=== PATIENT | male | born 1955 | race Caucasian/White ===

== ENCOUNTER 2025-04-24 17:27 | Emergency (ER) | payer MEDICARE, OTHER, SELFPAY ==
[2025-04-24 17:45] VITALS: BP 134/89
[2025-04-24 18:29] LABS: Hematocrit 44.1 % (39.0-52.0); Hemoglobin 14.2 g/dL (13.0-18.0); Mean Corp Hgb Conc. 32.2 g/dL (33.0-37.0); Mean Corpuscular Volume 80.8 fL (80.0-94.0); Nucleated Red Blood Cells % 0 % (-); Platelet Count 366 10^3/uL (130-400); Red Cell Dist. Width 16.3 % (11.5-14.5)
[2025-04-24 18:50] LABS: ALT (SGPT) 15 U/L (0-50); AST (SGOT) 21 U/L (17-59); Albumin 3.8 g/dl (3.5-5.0); Alkaline Phosphatase 114 U/L (38-126); Blood Urea Nitrogen 23 mg/dl (9-20); Calcium 9.5 mg/dl (8.4-10.2); Carbon Dioxide 25 mmol/L (22-30); Chloride 103 mmol/L (98-107); Glucose 167 mg/dl (70-99); Potassium 4.6 mmol/L (3.5-5.1); Sodium 136 mmol/L (135-145); Total Protein 7.6 g/dl (6.3-8.2); eGFR 53.74
[2025-04-24 21:47] LABS: Urine Character Clear (Clear)
--- NOTE | 2025-04-24 21:53 | ED.GENMED ---
History of Present Illness
General
Chief Complaint: Fall
Source: patient and family
Time Seen by Provider: 04/24/25 20:47
History of Present Illness
History of Present Illness:
Note:
CHIEF COMPLAINT(S)
Injury from a fall and feelings of weakness.
HISTORY OF PRESENT ILLNESS
The patient is a 70-year-old male visiting from [place] for the . He reports that he had a fall, during which he sustained a minor injury to his knee. The patient does not feel like anything is broken. Following the fall, the
patient has felt weaker than usual but notes some improvement, as he can currently stand up. He has not experienced any fevers and reports no urinary issues, noting that his urine is yellow without any burning sensation. The patient also has a
persistent cough, which he describes as a minor issue and states that several peers in his age group have similar symptoms.
The patient reports skipping meals in the past few days intentionally, as part of his weight loss efforts. He manages diabetes with insulin, adjusting his insulin based on blood glucose readings from a sensor. He takes both fast-acting and
slow-acting insulin, with slow-acting being reported as more effective for him. He denies any episodes of hypoglycemia during his weak spells. The patient notes difficulty with physical activities, such as going up stairs at a hotel, and reports a
general lack of exercise while residing in [place].
The patients family member expressed concern over his deconditioning, inadequate self-care, and mobility issues such as difficulties getting up a single step at their front door. These factors are believed to contribute to his current state.
PAST MEDICAL AND SURGICAL HISTORY
The patient has a past medical history of a stroke and a prostate condition managed with lemon juice.
EXTERNAL RECORDS REVIEWED
The physician expressed an intention to review the patients laboratory results.
CHRONIC MEDICAL CONDITIONS SIGNIFICANTLY AFFECTING CARE
1. Diabetes mellitus managed with insulin.
2. Obesity suggested by the patients own reflection and the clinical examination.
SOCIAL DETERMINANTS AFFECTING HEALTH
The patient has not been maintaining an active lifestyle, particularly while residing in [place]. There are concerns from family about his deconditioning and self-care.
REVIEW OF SYSTEMS
- Constitutional: Weakness, no recent fevers.
- Respiratory: Persistent cough without acute distress.
- Genitourinary: No dysuria, yellow urine.
- Endocrine: Diabetes managed with insulin.
- Neurological: Weakness particularly noted after a fall, no acute deficits noted.
PHYSICAL EXAM
General: Alert, no acute distress, obese.
Skin: Warm, dry.
Head: Normocephalic, atraumatic.
Neck: Supple, trachea midline.
Eye, Ears, Nose, Mouth, and Throat: Oral mucosa moist.
Cardiovascular: Regular heart rate, no murmurs on auscultation.
Respiratory: Lungs clear to auscultation, respirations are non-labored.
Gastrointestinal: Abdomen nondistended.
Back: Normal range of motion, normal alignment.
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 No focal motor deficits. Small abrasion noted to the right knee
Neurological: Alert and oriented, no pronator drift, normal [id number] coordination.
Psychiatric: Cooperative, appropriate mood and affect.
PROBLEM LIST
Acute:
1. Fall with subsequent weakness.
Chronic:
1. Diabetes mellitus.
2. Obesity.
PLAN
1. Review laboratory results to assess for any underlying issues such as renal function and blood glucose management.
2. Perform a urine study to check for infection, hematuria, or proteinuria.
3. Monitor and adjust diabetes management based on blood glucose readings.
4. Consider addressing deconditioning with possible recommendations for engaging in more physical activity.
5. Discuss ongoing concerns with the patients family about his mobility and health maintenance.
DIFFERENTIAL DIAGNOSIS
The Differential Diagnosis includes, in no particular order and is not limited to:
1. Deconditioning
2. Peripheral neuropathy related to diabetes
3. Orthostatic hypotension
4. Stroke or transient ischemic attack
5. Medication side effect
6. Hypoglycemia/hyperglycemia episodes
7. Prostate issues affecting urinary function
8. Infection (e.g., lower respiratory tract)
9. Congestive heart failure
10. Vestibular disturbances or inner ear issues.
Disposition:
SUMMARY OF ENCOUNTER
The patient, a 70-year-old male visiting from [place] for the holidays, presented to the emergency department following a fall. He sustained a minor abrasion to the right knee. The family expressed concern about his weakness, attributing it to
deconditioning, as he has been overweight and obese. The patient appeared well, with a history of similar weakness during a previous holiday visit. He is afebrile and was able to get up with a cane without difficulty. Lab results were reviewed,
showing mild leukocytosis with a white blood cell count of 13.9. Other values, including hemoglobin, platelets, and electrolytes like sodium, potassium, chloride, and bicarbonate, were normal. His creatinine was slightly elevated at 1.4 mg/dL;
baseline levels were unavailable, and blood glucose was noted at 167 mg/dL. Liver function tests were grossly unremarkable. There was no clinical concern for stroke, and a urine analysis was performed, which was negative. Based on these findings, no
acute issues warrant hospital admission, but the patient was advised to return if symptoms worsen, such as the onset of fevers or more profound weakness.
PLAN
The plan includes discharging the patient with instructions to monitor for any escalation of symptoms such as the onset of fevers or increased weakness. If these occur, the patient should return for further assessment.
INDEPENDENT REVIEW OF LABS AND INTERPRETATION OF TESTS
My independent review of the CBC shows mild leukocytosis with a white blood cell count of 13.9, normal hemoglobin, and normal platelets. My independent review of BMP indicates slightly elevated creatinine at 1.4 mg/dL, with normal sodium, potassium,
chloride, and bicarbonate levels. Blood glucose was noted at 167 mg/dL. Liver function tests were unremarkable.
FOLLOW-UP INSTRUCTIONS
The patient should follow up with a primary care physician for ongoing management and monitoring of his condition. He should return to the emergency department if symptoms worsen.
MEDICATION RECONCILIATION
None explicitly prescribed or administered during the emergency department visit.
MEDICAL DECISION MAKING
- Number and Complexity of Problems Addressed: Chronic conditions affecting care include diabetes mellitus managed with insulin and obesity. Differential diagnosis considerations include deconditioning, peripheral neuropathy related to diabetes,
orthostatic hypotension, stroke or transient ischemic attack, medication side effect, hypoglycemia/hyperglycemia episodes, prostate issues, infection (lower respiratory tract), congestive heart failure, and vestibular disturbances.
- Data:
Category 1: Labs reviewed include CBC, BMP, and liver function tests. A urinalysis was performed and found to be negative.
Category 2: Clinical information was obtained from family members who acted as independent historians, providing context about the patients similar past conditions and current health status.
-Risk: Prescription medication was not required during this visit. Social determinants affecting health include inadequate physical activity and self-care concerns raised by family members.
DIAGNOSIS
- Fall-related minor knee abrasion.
- Weakness likely due to deconditioning.
- Leukocytosis (unspecified) (R79.82).
- Elevated creatinine (R94.4).
Phy Exam
Physical Exam
Physical Exam:
.
Course
Orders/Labs/Results
Orders:
Orders
04/24/25 18:17
Complete Blood Count/With Diff Urgent
Comprehensive Metabolic Panel Urgent
04/24/25 21:36
Urinalysis Reflex To Culture Urgent
Date Specimen was Collected: 04/24/25
Time Specimen was Collected: 21:35
Abnormal Lab Results
04/24/25
18:17
WBC 13.9 H 10^3/uL
(4.8-10.8)
MCH 26.0 L pg
(27.0-31.0)
MCHC 32.2 L g/dL
(33.0-37.0)
RDW 16.3 H %
(11.5-14.5)
Abs Immat Gran (auto) 0.1 H 10^3/uL
(0-0.05)
Absolute Neuts (auto) 11.2 H 10^3/uL
(1.4-6.5)
Absolute Monos (auto) 1.0 H 10^3/uL
(0.1-0.6)
Immature Gran % 0.6 H %
(0-0.5)
Neutrophils % 80.8 H %
(42.2-75.2)
Lymphocytes % 8.8 L %
(20.5-51.1)
BUN 23 H mg/dl
(9-20)
Creatinine 1.4 H mg/dL
(0.7-1.3)
Glucose 167 H mg/dl
(70-99)
Total Bilirubin 1.4 H mg/dl
(0.2-1.3)
04/24/25 18:17
04/24/25 18:17
Vital Signs
Initial and Last Documented VS:
Initial Vital Signs
Temp Pulse Resp BP Pulse Ox
98.1 F 65 16 134/89 98
04/24/25 17:45 04/24/25 17:45 04/24/25 17:45 04/24/25 17:45 04/24/25 17:45
Last Documented Vital Signs
Temp Pulse Resp BP Pulse Ox
98.1 F 65 16 134/89 98
04/24/25 17:45 04/24/25 17:45 04/24/25 17:45 04/24/25 17:45 04/24/25 17:45
*Pulse Oximetry
SaO2: 98
Oxygen Mode of Delivery: Room air
Patient hypoxic: no
*Critical Care Note
Total Time (30-74mins, 75-104mins- exclusive of procedures): Not Applicable
ED Attending Note
-
Portions of this chart may have been created with voice recognition software.� Occasional wrong word or��sound alike� substitutions may have occurred due to the inherent limitations of voice recognition software.
Discharge Plan
Departure
Patient Disposition: Home (Routine Discharge)
Date of Disposition: 04/24/25
Time of Disposition: 21:55
Patient with high blood pressure during this ER visit?: No
Discharge Problem:
Abrasion, Fall, Weakness
Instructions: Skin Abrasions (DC), Weakness
Referrals:
MARY CASTELLANO [Other]
Activity Restrictions/Additional Instructions:
Return immediately for fevers, vomiting, chest pain, shortness of breath, worsening symptoms, or any other concerns. Please see your doctor for follow-up upon return to home.
Interventions
Interventions:
*General Assessment Last Done: 04/24/25 17:45
*Neglect/Abuse Screening Last Done: 04/24/25 17:45
*ED COVID-19 Vaccine History Last Done: 04/24/25 17:45
*ED Influenza Vaccine History Last Done: 04/24/25 17:45
*Risk Screen - Suicide (C-SSRS) Last Done: 04/24/25 17:45
Discharge Date and Time
Print Language: NAMIBIAN
[2025-04-24 22:18] LABS: Urine Red Blood Cell 0-2 /HPF (0-2); Urine Squamous Cell 16-20 /LPF (Few); Urine White Cell 0-2 /HPF (0-5)
--- NOTE | 2025-04-25 14:08 | EDCM ---
Called pt to follow up on CM consult from ED visit yesterday. Pt states he is ambulating with a cane, currently staying at the [facility]. States he is still having knee pain, he will call family prior to leaving room so they can come help him find
his car.
Pt drove here from [place] to visit family for the holiday. He will be driving back on 04/28.
He asked if I could give him information on weight loss medications. I encouraged him to follow up with his PCP to discuss this when he returns to [place]. He told me he has an appointment scheduled for 05/09/24.
No other CM needs at this time.
== END 2025-04-24 23:26 | disposition home or self-care (01) ==
LOC: EMR 17:27
PROVIDERS: EMERGENCY PHYSICIAN Emergency Medicine
DX: S80.211A Abrasion, right knee, initial encounter (principal); W19.XXXA Unspecified fall, initial encounter; R53.1 Weakness; E11.9 Type 2 diabetes mellitus without complications; Z79.4 Long term (current) use of insulin; Z86.73 Personal history of transient ischemic attack (TIA), and cerebral infarction without residual deficits; D72.829 Elevated white blood cell count, unspecified
CPT/HCPCS: 99283; 80053; 81003; 81015; 85025